=== PATIENT | female | born 1990 | race Caucasian/White ===

== ENCOUNTER 2020-08-22 06:06 | Inpatient (IN) | payer BC ==
[~2020-08-22] VITALS: Ht 172.7 cm; Wt 120.5 kg
[2020-08-22] VITALS (48 sets, daily range): BP systolic 95–155; BP diastolic 55–84; PULSE 41–116; TEMP 97.7–98.5
[2020-08-22] MEDS ORDERED: PRENATAL MVI (07:00)
[2020-08-22 07:22] LABS: BASO % 0.2 % (0.0-2.0); EOS # 0.1 (0.0-0.7); GRAN # 6.5 (1.4-6.5); HEMATOCRIT 31.6 % (37.0-47.0); HEMOGLOBIN 10.8 g/dl (12.5-16.0); LYMPH # 1.8 (1.2-3.4); LYMPH % 19.7 % (20.0-51.0); MEAN CELL VOLUME 91 fl (80.0-100.0); MEAN CORPUSCULAR HEMOGLOBIN 31 pg (27.0-31.0); MEAN CORPUSCULAR HGB CONC 34 g/dl (33.0-37.0); MEAN PLATELET VOLUME 10.6 fl (7.4-10.4); MONO # 0.7 (0.1-0.6); MONO % 7.6 % (1.7-9.3); PLATELET COUNT 201 K/mm3 (130-400); RED BLOOD COUNT 3.48 M/mm3 (4.10-5.30); REDCELL DISTRIBUTION WIDTH-CV 12.9 % (11.5-14.5)
[2020-08-23 03:05] VITALS: BP 99/61; PULSE 88; TEMP 98.5
[2020-08-23 07:57] VITALS: BP 115/71; PULSE 98; TEMP 97.9
[2020-08-23] MEDS ORDERED: MOTRIN 800800 MG/TAB PO (07:59)
[2020-08-23 11:55] VITALS: BP 108/66; PULSE 81; TEMP 97.9
[2020-08-23 15:29] VITALS: BP 110/58; PULSE 73; TEMP 97.9
== END 2020-08-23 18:20 | disposition home or self-care (01) | DRG 806 ==
LOC: OB 06:06 → LDR 06:34 → OB 06:34 → LDR 08:22 → OB 08:34
PROVIDERS: ADMIT Obstetrics & Gynecology
PROC: 10E0XZZ Delivery of Products of Conception, External Approach (ICD-10-PCS; principal; 2020-08-22)
PROC: 0KQM0ZZ Repair Perineum Muscle, Open Approach (ICD-10-PCS; 2020-08-22)
PROC: 3E033VJ Introduction of Other Hormone into Peripheral Vein, Percutaneous Approach (ICD-10-PCS; 2020-08-22)
PROC: 10907ZC Drainage of Amniotic Fluid, Therapeutic from Products of Conception, Via Natural or Artificial Opening (ICD-10-PCS; 2020-08-22)
DX: O99.344 Other mental disorders complicating childbirth (principal); O99.354 Diseases of the nervous system complicating childbirth; Z37.0 Single live birth; O72.1 Other immediate postpartum hemorrhage; G89.29 Other chronic pain; F41.9 Anxiety disorder, unspecified; F32.9 Major depressive disorder, single episode, unspecified; O99.820 Streptococcus B carrier state complicating pregnancy; O99.62 Diseases of the digestive system complicating childbirth; K21.9 Gastro-esophageal reflux disease without esophagitis; O70.1 Second degree perineal laceration during delivery; Z20.822 Contact with and (suspected) exposure to COVID-19; O99.214 Obesity complicating childbirth; Z3A.39 39 weeks gestation of pregnancy
CPT/HCPCS: J2540; J2590; J2795; J7120

== ENCOUNTER → 2020-10-09 | Outpatient (CLI) | payer BC ==
[~2020-10-09] MED LIST: MOTRIN 800800 MG/TAB PO; PRENATAL MVI
== END ==
LOC: COL.RAD 12:00
DX: R10.30 Lower abdominal pain, unspecified (principal)